=== PATIENT | female | born 1965 | race Caucasian/White ===

== ENCOUNTER 2024-01-31 03:23 | Emergency (ER) | payer OTHER ==
[2024-01-31] MEDS ORDERED: ONDANSETRON 4 MG/2 ML VIAL ONE (04:06)
[2024-01-31] MEDS ORDERED: PANTOPRAZOLE 40 MG INJ ONE (04:07)
[2024-01-31] MEDS ORDERED: MORPHINE 4 MG/ML SYR ONE ×2 (04:07→06:40)
[2024-01-31] MEDS ORDERED: NA CHLORIDE 0.9% 1,000 ML ONE (04:08)
[2024-01-31 04:22] LABS: Absolute Eosinophils 0.2 K/uL (0-0.5); Absolute Lymphocytes (CBC) 2.5 K/uL (0.7-4.9); Absolute Monocytes 0.6 K/uL (0.1-1.3); Absolute Neutrophil 4.5 K/uL (1.8-8.0); Basophils % 0.5 % (0-1.3); Hematocrit 41.4 % (36.0-45.0); Lymphocytes % 31.5 % (15.3-44.8); MCH 32.8 pg (27.0-35.0); MCHC 33.9 g/dL (32.0-36.0); MCV 96.6 fL (80-100); MPV 7.8 fL (7.6-11.3); Monocytes % 8.1 % (3.3-12.3); Neutrophils % 57.9 % (41.7-73.7); Platelets 318 thou/uL (152-406); RBC Red Blood Cell Count 4.28 M/uL (3.86-4.86); Red Cell Distribution Width 13.1 % (12.1-15.2)
[2024-01-31 04:24] LABS: PT Prothrombin Time 10.7 SECONDS (9.4-12.5); Protime INR 0.95
[2024-01-31 04:38] LABS: Albumin 3.9 g/dL (3.4-5.0); Albumin/Globulin Ratio 1.2 (1.1-1.8); Anion Gap 10.3 mEq/L (5.0-15.0); Bilirubin Direct 0.2 mg/dL (0-0.2); Bilirubin Indirect, Calculated 0.4 mg/dL (0.2-0.8); Bilirubin Total 0.6 mg/dL (0.2-1.0); Globulin 3.3 g/dL (2.3-3.5); Magnesium 2.1 mg/dL (1.6-2.4); Potassium 3.3 mEq/L (3.5-5.1); Protein, Total 7.2 g/dL (6.4-8.2); Troponin High Sensitivity 3.2 pg/mL (<58.9)
[2024-01-31 05:29] LABS: Specific Gravity 1.024 (1.005-1.030); Sqamous Epithelial <5 /HPF (None Seen); Urine Bacteria None Seen /HPF (<20); Urine Bilirubin NEGATIVE (Negative); Urine Blood Negative (Negative); Urine Clarity Clear (Clear); Urine Color Yellow (Yellow); Urine Culture Reflex Order NOT NEEDED; Urine Glucose NEGATIVE (Negative); Urine Ketones NEGATIVE (Negative); Urine Microscopic Reflex YN ORDER UMIC; Urine Nitrite NEGATIVE (Negative); Urine Protein 1+ (Negative); Urine RBC <5 /HPF (None Seen); Urine Urobilinogen Normal (Normal); Urine WBC <5 /HPF (<5); Urine pH 8.5 (5.0-7.0)
--- NOTE | 2024-01-31 06:28 | EDPHYS ---
Physician Documentation [facility] Name: Rupali Mendez Age: 58 yrs Sex: Female : 1965 Arrival Date: 01/31/2024 Time: 03:23 Bed 2 Private MD: Willis Villalta HPI: 01/30 03:50 This 58 yrs old Female presents to ER via Ambulatory with complaints of Abdominal Pain, cp Chest Pain. 03:50 The patient or guardian reports chest pain that is located primarily in the substernal cp area, epigastric area. Onset: yesterday. 03:50 Associated signs and symptoms: Pertinent positives: diarrhea, chest pain. cp Historical: - Allergies: 03:54 No Known Allergies; pc2 - PMHx: 03:54 Human papilloma virus infection; pc2 03:55 Iron deficiency; pc2 - Immunization history:: Adult Immunizations up to date. - Infectious Disease History:: Denies. - Social history:: Smoking status: Patient denies any tobacco usage or history of. ROS: 03:50 Constitutional: Negative for body aches, chills, fever, poor PO intake, cp 03:50 Eyes: Negative for injury, pain, redness, and discharge, cp 03:50 Cardiovascular: Positive for chest pain, Negative for edema, palpitations, 03:50 Respiratory: Negative for cough, shortness of breath, wheezing, 03:50 Abdomen/GI: Positive for abdominal pain, nausea, of the epigastric area, Negative for diarrhea, constipation, active vomiting, 03:50 Back: Negative for pain at rest, pain with movement, 03:50 Neuro: Negative for altered mental status, dizziness, headache, numbness, weakness, Exam: 03:55 Constitutional: The patient appears in no acute distress, alert, awake, cp non-diaphoretic, non-toxic, well developed, well nourished, uncomfortable, 03:55 Head/Face: Normocephalic, atraumatic. cp 03:55 Eyes: Periorbital structures: appear normal, Conjunctiva: normal, no exudate, no injection, Sclera: no appreciated abnormality, Lids and lashes: appear normal, bilaterally, 03:55 ENT: External ear(s): are unremarkable, Nose: is normal, Mouth: Lips: moist, Oral mucosa: pink and intact, moist, Posterior pharynx: is normal, airway is patent, no erythema, no exudate, 03:55 Chest/axilla: Inspection: normal, 03:55 Cardiovascular: Rate: normal, Rhythm: regular, Edema: is not appreciated, JVD: is not appreciated, 03:55 Respiratory: the patient does not display signs of respiratory distress, Respirations: normal, no use of accessory muscles, no retractions, labored breathing, is not present, Breath sounds: are clear throughout, no decreased breath sounds, no stridor, no wheezing, 03:55 Abdomen/GI: Inspection: abdomen appears normal, Bowel sounds: active, all quadrants, Palpation: soft, in all quadrants, moderate abdominal tenderness, in the epigastric area, rebound tenderness, is not appreciated, involuntary guarding, is not appreciated, 03:55 Back: pain, is absent, ROM is normal, 03:55 Neuro: Orientation: to person, place \T\ time. Mentation: is normal, 04:45 ECG was reviewed by the Attending Physician. cp Vital Signs: 03:37 BP 157 / 97; Pulse 95; Resp 18; Temp 98.1(O); Pulse Ox 99% on R/A; Weight 74.84 kg; oe Height 5 ft. 7 in. ; 05:12 BP 131 / 81; Pulse 73; Resp 16; Pulse Ox 100% on R/A; pc2 06:31 BP 120 / 77; Pulse 70; Resp 16; Pulse Ox 100% on R/A; pc2 03:37 Body Mass Index 25.84 (74.84 kg, 170.18 cm) oe MDM: 03:40 Patient medically screened. cp 06:26 Data reviewed: vital signs, nurses notes, lab test result(s), EKG, radiologic studies, cp CT scan, plain films, and as a result, I will discharge patient. 06:26 The patient was not given aspirin in the Emergency Department. Differential diagnosis: cp acute coronary syndrome, appendicitis, cholecystitis, Cholelithiasis, gastritis, gastroesophageal reflux disease, non-specific abd pain, pancreatitis, Peptic Ulcer Disease, Perf. Duodenal Ulcer, Perf. Gastric Ulcer. I considered the following discharge prescriptions or medication management in the emergency department Medications were administered in the Emergency Department. See MAR. Independent interpretation of the following test(s) in the Emergency Department EKG: See my EKG interpretation above. 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 Response to treatment: the patient's symptoms have markedly improved after treatment, and as a result, I will discharge patient. 01/30 03:48 Order name: Basic Metabolic Panel; Complete Time: 04:44 cp 01/30 04:44 Interpretation: Normal except: K 3.3; GLUC 114; GFR 76. cp 01/30 03:48 Order name: CBC with Diff; Complete Time: 04:36 cp 01/30 04:36 Interpretation: Reviewed. cp 01/30 03:48 Order name: LFT's; Complete Time: 04:44 cp 01/30 03:48 Order name: Magnesium; Complete Time: 04:44 cp 01/30 03:48 Order name: NT PRO-BNP; Complete Time: 04:44 cp 01/30 03:48 Order name: PT-INR; Complete Time: 04:36 cp 01/30 04:37 Interpretation: Reviewed. cp 01/30 03:48 Order name: Troponin HS; Complete Time: 04:44 cp 01/30 03:48 Order name: Lipase; Complete Time: 04:44 cp 01/30 06:25 Interpretation: Reviewed. cp 01/30 04:26 Order name: Urinalysis w/ reflexes; Complete Time: 05:34 pc2 01/30 05:35 Interpretation: Normal except: UPH 8.5; UPROT 1+. cp 01/30 03:48 Order name: XRAY Chest (1 view) cp 01/30 04:45 Order name: CT Abd/Pelvis - IV Contrast Only cp 01/30 03:48 Order name: Cardiac monitoring; Complete Time: 03:53 cp 01/30 03:48 Order name: EKG - Nurse/Tech; Complete Time: 03:53 cp 01/30 03:48 Order name: IV Saline Lock; Complete Time: 03:53 cp 01/30 03:48 Order name: Labs collected and sent; Complete Time: 03:53 cp 01/30 03:48 Order name: O2 Per Protocol; Complete Time: 03:53 cp 08/21 03:48 Order name: O2 Sat Monitoring; Complete Time: 03:53 cp EC:45 Rate is 72 beats/min. Rhythm is regular. IL interval is normal. QRS interval is normal. cp QT interval is normal. T waves are Inverted in leads aVR, V2. Interpreted by me. Reviewed by me. Administered Medications: 04:40 Drug: NS 0.9% IV 1000 ml IV at 999 ml/hr Per protocol Route: IV; Rate: 999 ml/hr; Site: pc2 right antecubital; 05:20 Follow up: Response: No adverse reaction; IV Status: Completed infusion; IV Intake: pc2 1000ml 04:40 Drug: Ondansetron IVP 4 mg IVP once; over 2 minutes Route: IVP; Site: right antecubital;pc2 05:10 Follow up: Response: No adverse reaction pc2 04:40 Drug: Pantoprazole IVP 40 mg IVP once Route: IVP; Site: right antecubital; pc2 05:10 Follow up: Response: No adverse reaction pc2 04:40 Drug: morphine IVP or IV 4 mg IVP once over 4 mins Route: IVP; Infused Over: 4 mins; pc2 Site: right antecubital; 05:10 Follow up: Response: No adverse reaction; Marked relief of symptoms; RASS: Alert and pc2 Calm (0) 06:51 Drug: GI Cocktail without - (Maalox PO 30 ml, Lidocaine Mucous Membrane 2 % 15 pc2 ml) PO once Route: PO; 06:52 Follow up: Response: No adverse reaction; Medication administered at discharge. pc2 06:51 Drug: Sucralfate PO 1 grams PO once Route: PO; pc2 06:53 Follow up: Response: No adverse reaction; Medication administered at discharge. pc2 06:51 Drug: morphine IVP or IV 4 mg IVP once over 4 mins Route: IVP; Infused Over: 4 mins; pc2 Site: right antecubital; 06:53 Follow up: Response: No adverse reaction; Medication administered at discharge. pc2 Disposition: 01/31 01:20 Co-signature as Attending Physician, Willis Paz MD I agree with the assessment and misael plan of care. Disposition Summary: 01/31/24 06:27 Discharge Ordered Notes: Location: Home cp Problem: new cp Symptoms: have improved cp Condition: Stable cp Diagnosis - Epigastric pain cp - Chest pain, unspecified cp Followup: cp - With: Private Physician - When: 2 - 3 days - Reason: Worsening of condition Discharge Instructions: - Discharge Summary Sheet cp - Nonspecific Chest Pain, Adult cp - Gastritis, Adult cp - Gastroesophageal Reflux Disease, Adult cp Forms: - Medication Reconciliation Form cp - Antibiotic Education cp - Prescription Opioid Use cp - Patient Portal Instructions cp - Leadership Thank You Letter cp Prescriptions: - Carafate 1 gram Oral tablet - take 1 tablet ORAL route 4 times per day take on an empty stomach, beginning on cp waking and last dose at bedtime. dissolve tablet in 6 ounces warm water prior to ingestion; 100 tablet; Refills: 0, Product Selection Permitted - Zofran 4 mg Oral Tablet - take 1 tablet ORAL route every 12 hours As needed; 20 tablet; Refills: 0, cp Product Selection Permitted Signatures: Dispatcher [employer] EDMS Willis Paz MD MD cha Page, Corey, PA PA Anny Soni, RN RN pc2 Corrections: (The following items were deleted from the chart) 01/30 03:48 03:48 BASIC METABOLIC PANEL+C.LAB.BRZ ordered. EDMS EDMS 03:48 03:48 CBC+H.LAB.BRZ ordered. EDMS EDMS 03:48 03:48 HEPATIC FUNCTION+C.LAB.BRZ ordered. EDMS EDMS 03:48 03:48 MAGNESIUM+C.LAB.BRZ ordered. EDMS EDMS 03:48 03:48 PROBNP+C.LAB.BRZ ordered. EDMS EDMS 03:48 03:48 PROTIME (+INR)+COAG.LAB.BRZ ordered. EDMS EDMS 03:48 03:48 Troponin High Sensitivity+C.LAB.BRZ ordered. EDMS EDMS 03:48 03:48 LIPASE+C.LAB.BRZ ordered. EDMS EDMS 03:49 03:48 Chest Single View+RAD.RAD.BRZ ordered. EDMS EDMS
--- NOTE | 2024-01-31 06:28 | ER ---
Nurse's Notes [facility] Name: Rupali Mendez Age: 58 yrs Sex: Female : 1965 Arrival Date: 01/31/2024 Time: 03:23 Bed 2 Private MD: Diagnosis: Epigastric pain;Chest pain, unspecified Presentation: 01/30 03:40 Chief complaint: Patient states: Chest discomfort and RUQ abdominal pain since pc2 yesterday morning with watery diarrhea and nausea. Also had urinalysis done on Monday that showed protein and bili in my urine. 03:40 Coronavirus screen: At this time, the client does not indicate any symptoms associated pc2 with coronavirus-19. Ebola Screen: No symptoms or risks identified at this time. Initial Sepsis Screen: Does the patient meet any 2 criteria? No. Patient's initial sepsis screen is negative. Does the patient have a suspected source of infection? No. Patient's initial sepsis screen is negative. Risk Assessment: Do you want to hurt yourself or someone else? Patient reports no desire to harm self or others. Onset of symptoms was January 30, 2024. 03:40 Method Of Arrival: Ambulatory pc2 03:40 Acuity: AGUSTINA 3 pc2 Triage Assessment: 03:35 General: Appears in no apparent distress. comfortable, well groomed, well developed, pc2 Behavior is calm, cooperative, appropriate for age. Pain: Complains of pain in chest and abdomen Pain does not radiate. Pain currently is 7 out of 10 on a pain scale. at worst was 10 out of 10 on a pain scale. Quality of pain is described as burning, stabbing, Pain began gradually, Is intermittent, lasting more than 1 hour. Alleviated by repositioning, Also complains of nausea. EENT: No signs and/or symptoms were reported regarding the EENT system. Neuro: Level of Consciousness is awake, alert, obeys commands, Oriented to person, place, time, situation, Appropriate for age. Cardiovascular: Heart tones S1 S2 Patient's skin is warm and dry. Rhythm is regular Chest pain is described as Pain is 7 out of 10 on a pain scale. quality is burning, stabbing, is located in epigastric area. Respiratory: Airway is patent Respiratory effort is even, unlabored, Respiratory pattern is regular, symmetrical. Respiratory: Denies shortness of breath. GI: Abdomen is round non-distended, Bowel sounds present X 4 quads. Abd is soft X 4 quads Reports upper abdominal pain, diarrhea, nausea. : No signs and/or symptoms were reported regarding the genitourinary system. Derm: No signs and/or symptoms reported regarding the dermatologic system. Musculoskeletal: No signs and/or symptoms reported regarding the musculoskeletal system. Circulation, motion, and sensation intact. Range of motion: intact in all extremities. Historical: - Allergies: 03:54 No Known Allergies; pc2 - PMHx: 03:54 Human papilloma virus infection; pc2 03:55 Iron deficiency; pc2 - Immunization history:: Adult Immunizations up to date. - Infectious Disease History:: Denies. - Social history:: Smoking status: Patient denies any tobacco usage or history of. Screenin:54 [facility] ED Fall Risk Assessment (Adult) History of falling in the last 3 months, pc2 including since admission No falls in past 3 months (0 pts) Confusion or Disorientation No (0 pts) Intoxicated or Sedated No (0 pts) Impaired Gait No (0 pts) Mobility Assist Device Used No (0 pt) Altered Elimination No (0 pt) Score/Fall Risk Level 0 - 2 = Low Risk Oriented to surroundings, Maintained a safe environment, Hourly rounding (assess needs \T\ fall precautionary measures) done. Abuse screen: Denies threats or abuse. Denies injuries from another. Nutritional screening: No deficits noted. Tuberculosis screening: No symptoms or risk factors identified. Assessment: 03:56 Reassessment: see triage. pc2 05:12 Reassessment: Patient appears in no apparent distress at this time. Patient and/or pc2 family updated on plan of care and expected duration. Pain level reassessed. Patient is alert, oriented x 3, equal unlabored respirations, skin warm/dry/pink. Patient states feeling better. Patient states symptoms have improved. 06:31 Reassessment: Patient appears in no apparent distress at this time. Patient states pc2 feeling better. Patient states symptoms have improved. Vital Signs: 03:37 BP 157 / 97; Pulse 95; Resp 18; Temp 98.1(O); Pulse Ox 99% on R/A; Weight 74.84 kg; oe Height 5 ft. 7 in. ; 05:12 BP 131 / 81; Pulse 73; Resp 16; Pulse Ox 100% on R/A; pc2 06:31 BP 120 / 77; Pulse 70; Resp 16; Pulse Ox 100% on R/A; pc2 03:37 Body Mass Index 25.84 (74.84 kg, 170.18 cm) oe ED Course: 03:27 Patient arrived in ED. gm2 03:36 Willis Barney PA is PHCP. cp 03:36 Willis Paz MD is Attending Physician. cp 03:40 EKG done, by ED staff, reviewed by Willis COSTELLO. pc2 03:45 Inserted saline lock: 20 gauge in right antecubital area, using aseptic technique. pc2 Blood collected. Flushed with 10 mL NS. 03:50 Initial lab(s) drawn, by mi, sent to lab. pc2 03:52 Anny Warren, RN is Primary Nurse. pc2 03:53 Basic Metabolic Panel Sent. pc2 03:53 CBC with Diff Sent. pc2 03:53 LFT's Sent. pc2 03:53 Magnesium Sent. pc2 03:53 NT PRO-BNP Sent. pc2 03:53 PT-INR Sent. pc2 03:53 Troponin HS Sent. pc2 03:53 Lipase Sent. pc2 03:53 Client placed on continuous cardiac and pulse oximetry monitoring. NIBP monitoring pc2 applied. 03:56 Patient has correct armband on for positive identification. Bed in low position. Call pc2 light in reach. Side rails up X2. Provided Education on: POC and time frame. 03:59 Triage completed. pc2 04:02 No provider procedures requiring assistance completed. pc2 04:03 Arm band placed on right wrist. pc2 04:26 X-ray(s) taken. pc2 04:28 Urinalysis w/ reflexes Sent. pc2 04:29 XRAY Chest (1 view) In Process Unspecified. EDMS 04:52 Urinalysis w/ reflexes Sent. pc2 05:23 CT Abd/Pelvis - IV Contrast Only In Process Unspecified. EDMS 06:55 IV discontinued, intact, bleeding controlled, No redness/swelling at site. Pressure pc2 dressing applied. Administered Medications: 04:40 Drug: NS 0.9% IV 1000 ml IV at 999 ml/hr Per protocol Route: IV; Rate: 999 ml/hr; Site: pc2 right antecubital; 05:20 Follow up: Response: No adverse reaction; IV Status: Completed infusion; IV Intake: pc2 1000ml 04:40 Drug: Ondansetron IVP 4 mg IVP once; over 2 minutes Route: IVP; Site: right antecubital;pc2 05:10 Follow up: Response: No adverse reaction pc2 04:40 Drug: Pantoprazole IVP 40 mg IVP once Route: IVP; Site: right antecubital; pc2 05:10 Follow up: Response: No adverse reaction pc2 04:40 Drug: morphine IVP or IV 4 mg IVP once over 4 mins Route: IVP; Infused Over: 4 mins; pc2 Site: right antecubital; 05:10 Follow up: Response: No adverse reaction; Marked relief of symptoms; RASS: Alert and pc2 Calm (0) 06:51 Drug: GI Cocktail without - (Maalox PO 30 ml, Lidocaine Mucous Membrane 2 % 15 pc2 ml) PO once Route: PO; 06:52 Follow up: Response: No adverse reaction; Medication administered at discharge. pc2 06:51 Drug: Sucralfate PO 1 grams PO once Route: PO; pc2 06:53 Follow up: Response: No adverse reaction; Medication administered at discharge. pc2 06:51 Drug: morphine IVP or IV 4 mg IVP once over 4 mins Route: IVP; Infused Over: 4 mins; pc2 Site: right antecubital; 06:53 Follow up: Response: No adverse reaction; Medication administered at discharge. pc2 Medication: 03:54 VIS not applicable for this client. pc2 Intake: 05:20 IV: 1000ml; Total: 1000ml. pc2 Outcome: 06:27 Discharge ordered by . cp 06:54 Discharged to home ambulatory, with family, pc2 06:54 Condition: stable 06:54 Discharge instructions given to patient, family, Instructed on discharge instructions, follow up and referral plans. medication usage, Received radiology imaging on disc Demonstrated understanding of instructions, follow-up care, medications, Prescriptions given X 2, 07:02 Patient left the ED. pc2 Signatures: Dispatcher [employer] EDMS Willis Barney PA PA cp Espinosa, [place] oe Mitchell, Ginger gm2 Anny Warren, RN RN pc2 Corrections: (The following items were deleted from the chart) 04:03 03:35 GI: Abdomen is round non-distended, Reports upper abdominal pain, diarrhea, pc2 nausea, pc2 04:03 03:35 GI: Abdomen is round non-distended, Bowel sounds present X 4 quads. Reports upper pc2 abdominal pain, diarrhea, nausea, pc2
[2024-01-31] MEDS ORDERED: SUCRALFATE 1 GM TABLET ONE (06:39)
[2024-01-31] MEDS ORDERED: MAGNES/ALUMIN/SIMET 30ML UCUP ONE (06:39)
[2024-01-31] MEDS ORDERED: LIDOCAINE VISCOUS 2% 10ML ORAL SOLN ONE (06:40)
[2024-01-31 07:17] VITALS: TEMP 98.1
[2024-01-31 07:22] VITALS: O2SAT 100
[2024-01-31 07:28] VITALS: BP 120/77
--- NOTE | 2024-01-31 16:54 | EKG ---
Test Date: 2024-01-31 Test Time: 04:41:24 Speech Correction Consultant: KWAKU MEASUREMENT RESULTS: Intervals: Rate: 72 SD: 126 QRSD: 88 QT: 414 QTc: 453 Rowland: P: 18 SD: 126 QRS: 47 T: 50 INTERPRETIVE STATEMENTS: Normal sinus rhythm Normal ECG No previous ECG available for comparison Electronically Signed On 01-31-24 16:53:38 CDT by Conner Sena
--- NOTE | 2024-01-31 20:38 | RAD REPORT ---
EXAM DESCRIPTION: CT - Abdomen Pelvis W Contrast - 01/31/2024 6:29 am CLINICAL HISTORY: The patient is 58 years old and is Female; Abdomen pain. TECHNIQUE: Axial computed tomography images of the abdomen and pelvis with intravenous contrast. S agittal and coronal reformatted images were created and reviewed. This CT exam was performed using one or more of the following dose reduction techniques: automated exposure control, adjustment of t he mA and/or kV according to patient size, and/or use of iterative reconstruction technique. COMPARISON: No relevant prior studies available. FINDINGS: Lung bases: Unremarkable. No mass. No consolidation. ABDOMEN: Liver: Fatty liver. Flash filling area in the right hepatic lobe, possible flash filling hemangio ma. Borderline hepatomegaly. Gallbladder and bile ducts: Unremarkable. No calcified stones. No ductal dilation. Pancreas: No findings to suggest acute pancreatitis. No mass visualized. No ductal dilation. Spleen: Unremarkable. No splenomegaly. Adrenals: Unremarkable. No mass. Kidneys and ureters: Unremarkable. No solid mass. No hydronephrosis. Stomach and bowel: Mild wall thickening in the gastric antrum versus artifact of incomplete diste ntion. Fluid throughout the lumen of the colon, suggesting diarrheal symptoms. No colon wall thick ening or pericolonic inflammation to suggest colitis. No bowel dilatation or obstruction. No bowel wall thickening. PELVIS: Appendix: No findings to suggest acute appendicitis. Bladder: Unremarkable. No mass. Reproductive: Hysterectomy. No adnexal mass. ABDOMEN and PELVIS: Intraperitoneal space: Unremarkable. No free air. No significant fluid collection. Bones/joints: Degenerative changes in the lumbar spine. No acute fracture visualized. No dislocation. Soft tissues: Unremarkable. Vasculature: Unremarkable. No abdominal aortic aneurysm. Lymph nodes: No pathologically enlarged lymph nodes. IMPRESSION: 1. Mild wall thickening in the gastric antrum versus artifact of incomplete distention . Correlate clinically for focal gastritis/PUD. 2. Fluid throughout the lumen of the colon, suggesting diarrheal symptoms. No colon wall thickeni ng or pericolonic inflammation to suggest colitis. 3. Fatty liver. Flash filling area in the right hepatic lobe, possible flash filling hemangioma. Sin rderline hepatomegaly. Electronically signed by: Zohra Chaves MD 01/31/2024 06:19 AM CDT RP ND Due to temporary technical issues with the PACS/Fluency reporting system, reports are being signed by the in house radiologists without review as a courtesy to insure prompt reporting. The interpreting radiologist is fully responsible for the content of the report.
--- NOTE | 2024-01-31 20:39 | RAD REPORT ---
EXAM DESCRIPTION: RAD - Chest Single View - 01/31/2024 4:28 am CLINICAL HISTORY: CHEST PAIN COMPARISON: None. FINDINGS: 1 view(s) of the chest. Tubes and lines: None. Cardiomediastinal silhouette: Normal size and contour. Lungs: No consolidation, pneumothorax, or pleural effusion. Bones: No acute osseous abnormality. Upper abdomen: No abnormality identified. IMPRESSION: 1. No acute pulmonary process identified. Electronically signed by: Abrahan Jaimes DO 01/31/2024 05:26 AM CDT 4ZDM Due to temporary technical issues with the PACS/Fluency reporting system, reports are being signed by the in house radiologists without review as a courtesy to insure prompt reporting. The interpreting radiologist is fully responsible for the content of the report.
== END 2024-01-31 07:02 | disposition home or self-care (01) ==
LOC: ER 03:23
DX: R10.13 Epigastric pain (principal); R07.9 Chest pain, unspecified
CPT/HCPCS: 93005; 85025; 81001; 80048; 36415; 83735; 85610; 80076; 84484; 83690; 83880; 74177; 71045; Q9967; J2470; J2405; J7030